=== PATIENT | male | born 1975 | race Caucasian/White ===

== ENCOUNTER 2023-09-21 05:49 | Observation (INO) ==
[2023-09-21 07:22] LABS: Albumin 4.8 g/dL (3.2-5.2); Albumin/Globulin Ratio 2.7 (1-3); Calcium 8.9 mg/dL (8.6-10.3); Globulin 1.8 g/dL (2-4); Potassium 4.3 mmol/L (3.5-5.0); Total Protein 6.6 g/dL (6.4-8.9); eGFR CKD-EPI 91.7 (>60)
[2023-09-21 08:23] LABS: High Sensitivity Troponin 1 Hr 21 pg/mL (<20)
[2023-09-21 08:40] LABS: ABS Basophils 0.1 10^3/uL (0.0-0.1); ABS Lymphocytes 2.6 10^3/uL (1.0-4.8); ABS Monocytes 0.6 10^3/uL (0.0-1.1); ABS Neutrophils 5.3 10^3/uL (1.5-7.6); ABS Nucleated RBC 0.01 10^3/ul; Eosinophil % 0.5 %; Hematocrit 49.9 % (38-53); Hemoglobin 17.2 g/dL (13.2-16.3); Large Platelets Present; Lymphocyte % 30.2 %; Mean Corpuscular Hgb Conc 34.5 g/dL (31-36); Mean Corpuscular Volume 86.9 fL (80-97); Mean Platelet Volume 10.9 fL (7.5-11.2); Nucleated Red Blood Cells % 0.2 %/100WBC (0.0-0.8); Platelet Count 90 10^3/uL (150-450); Red Blood Count 5.74 10^6/uL (4.06-5.63); Red Cell Distribution Width 14.5 % (12-17); White Blood Count 8.6 10^3/uL (3.6-10.2)
[2023-09-21] MEDS: Furosemide 40 mg/4 ml IV VIAL IV SLOW PU ONE ×2 (08:41→15:15)
[2023-09-21 12:47] LABS: Calcium 9.5 mg/dL (8.6-10.3); Creatinine, Serum 0.98 mg/dL (0.67-1.17); Potassium 4.2 mmol/L (3.5-5.0); eGFR CKD-EPI 93.9 (>60)
[2023-09-21 13:00] LABS: TSH Ultra Thyroid Stim Horm 1.32 mcIU/mL (0.34-5.60)
[2023-09-21 13:06] LABS: Ferritin 221.4 ng/mL (24-336)
[2023-09-21] MEDS: Sulfur Hexaflouride MICROSPHR 25 MG VIAL IV ONE (13:58)
[2023-09-21] MEDS ORDERED: Sulfur Hexaflouride MICROSPHR 25 MG VIAL ONE (14:20)
[2023-09-21] MEDS: Heparin 5000 UNITS/ML 1 mL VIAL SUBCUT SCH (15:15)
[2023-09-22 07:42] LABS: Hematocrit 53.9 % (38-53); Hemoglobin 18.5 g/dL (13.2-16.3); Mean Corpuscular Hemoglobin 29.8 pg (27-33); Mean Corpuscular Hgb Conc 34.3 g/dL (31-36); Red Cell Distribution Width 14.6 % (12-17); White Blood Count 8.5 10^3/uL (3.6-10.2)
[2023-09-22] MEDS ORDERED: fentaNYL 100 mcg/2 ml 50 MCG/ML VIAL ONE (08:20)
[2023-09-22] MEDS ORDERED: Heparin 1,000 UNIT/ML 10 ml (10,000 UNITS) CATHLAB/DIALYSIS ONE (08:20)
[2023-09-22] MEDS ORDERED: VERAPAMIL 2.5 MG/ML 2 ML VIAL ** 5 mg/2 ml ONE (08:20)
[2023-09-22] MEDS ORDERED: Midazolam 5 mg/5 ml VIAL 1 mg/ml 5 ml VIAL (5 mg) ONE (08:20)
[2023-09-22] MEDS ORDERED: Iohexol 350 (CONTRAST) 200 ML MDV IV ONE (08:21)
[2023-09-22] MEDS ORDERED: Lidocaine 1% MPF 5 ML VIAL ONE (08:21)
[2023-09-22] MEDS ORDERED: Heparin 2 UNITS/ML 1000 mls 2,000 ML IV ONE (08:21)
[2023-09-22] MEDS ORDERED: nitroGLYCERIN DRIP 25,000 MCG/250 ML BTL ONE (08:21)
[2023-09-22 08:25] LABS: ABS Eosinophils 0.1 10^3/uL (0.0-0.5); ABS Lymphocytes 2.8 10^3/uL (1.0-4.8); ABS Monocytes 0.6 10^3/uL (0.0-1.1); ABS Neutrophils 4.9 10^3/uL (1.5-7.6); ABS Nucleated RBC 0.08 10^3/ul; Eosinophil % 0.8 %; Large Platelets Present; Lymphocyte % 33.3 %; Mean Platelet Volume 11.1 fL (7.5-11.2); Nucleated Red Blood Cells % 0.9 %/100WBC (0.0-0.8); Platelet Count 94 10^3/uL (150-450)
[2023-09-22 09:16] LABS: HDL Cholesterol 30.8 mg/dL
[2023-09-22] MEDS: fentaNYL 100 mcg/2 ml 50 MCG/ML VIAL IV SLOW PU ONE (10:54)
[2023-09-22] MEDS: Midazolam 10 mg/10 ml VIAL 1 mg/ml 10 ml VIAL (10 mg) IV SLOW PU ONE (10:54)
[2023-09-22 11:00] VITALS: BP 113/89
[2023-09-22] MEDS: NS 0.9% 1000 ml BAG 1,000 ML IV SCH (11:57)
== END 2023-09-22 16:50 | disposition home or self-care (01) ==
LOC: ED 05:49 → EDHOLD 05:49 → MED 16:08 → MEDTELE 09-22 11:17
PROVIDERS: ADMIT Internal Medicine; ATTEND Internal Medicine